=== PATIENT | female | born 1995 | race Caucasian/White ===

== ENCOUNTER 2024-04-08 15:02 | Inpatient (IN) ==
[2024-04-08] MEDS: Lactated Ringers 1000 ml BAG 1,000 ML IV ONE (20:03)
[2024-04-08] MEDS: Lidocaine 2% JELLY 6 ML Topical TOPICAL ONE (20:17)
[2024-04-08 20:20] LABS: ABS Eosinophils 0.1 10^3/uL (0.0-0.5); ABS Lymphocytes 1.7 10^3/uL (1.0-4.8); ABS Monocytes 1.1 10^3/uL (0.0-0.9); ABS Neutrophils 9.4 10^3/uL (1.5-7.6); ABS Nucleated RBC 0.02 10^3/ul; Eosinophil % 0.9 %; Hematocrit 37.5 % (35-45); Hemoglobin 12.8 g/dL (11.5-14.3); Lymphocyte % 13.7 %; Mean Corpuscular Hgb Conc 34.1 g/dL (31-36); Mean Corpuscular Volume 90.7 fL (80-97); Nucleated Red Blood Cells % 0.1 %/100WBC (0.0-0.8); Platelet Count 221 10^3/uL (150-450); Red Blood Count 4.14 10^6/uL (3.63-4.92); Red Cell Distribution Width 12.9 % (12-17); White Blood Count 12.3 10^3/uL (3.8-11.8)
[2024-04-08] MEDS: Nalbuphine 10 MG/ML 1 ML VIAL IV PRN (21:54)
[2024-04-09] MEDS: Lactated Ringers 1000 ml BAG 1,000 ML IV SCH ×2 (07:53→21:37)
[2024-04-09 07:56] LABS: Urine Benzodiazepine Screen None Detected (None Detect); Urine Cannabinoids Screen None Detected (None Detect); Urine Opiates Screen None Detected (None Detect)
[2024-04-09] MEDS: OBEPIDURAL (200 ML) 200 ML EPIDURAL ONE (08:14)
[2024-04-09] MEDS ORDERED: Phenylephrine 40 mcg/mL 10mL (400mcg) SYRINGE IV PUSH PRN ×2 (08:17)
[2024-04-09] MEDS ORDERED: Sodium Citrate/Citric Acid LIQ 15 ML UDC PO PRN (08:17)
[2024-04-09] MEDS: Oxytocin in LR 20,000 MILLI.UNIT/1,000 ML BAG IV SCH ×2 (09:06→21:38)
[2024-04-09 09:33] LABS: Urine Appearance Clear; Urine Bilirubin Negative (Negative); Urine Blood Negative (Negative); Urine Color Colorless; Urine Glucose Negative (Negative); Urine Ketones Negative (Negative); Urine Nitrite Negative (Negative); Urine Protein Negative (Negative); Urine Specific Gravity 1.004 (1.002-1.030); Urine Urobilinogen Negative (Negative)
[2024-04-09] MEDS: Lidocaine 1% VIAL 10 MG/ML 30 ML VIAL INJ PRN (16:20)
[2024-04-09] MEDS: Dibucaine 1% OINT 28.35 GM TUBE ONE (16:23)
[2024-04-09] MEDS: Witch Hazel PAD JAR ONE (16:23)
[2024-04-09] MEDS ORDERED: Witch Hazel PAD JAR TOPICAL PRN (18:25)
[2024-04-09] MEDS ORDERED: Glycerin ADULT 2.4 gm SUPP PR PRN (18:25)
[2024-04-09] MEDS ORDERED: Polyethylene Glycol 3350 17 GM PACKET PO PRN (18:25)
[2024-04-09] MEDS: Buffered Lidocaine 1% SYRIN 1 ml INTRADERM ONE (21:37)
[2024-04-09] MEDS: Lactated Ringers 1000 ml BAG 1,000 ML IV ONE (21:37)
[2024-04-09] MEDS: Lidocaine 1.5% EPI 1:200,000 30 ML SDV ONE (21:37)
[2024-04-09] MEDS: Phenylephrine 40 mcg/mL 10mL (400mcg) SYRINGE ONE (21:37)
[2024-04-09] MEDS: OBEPIDURAL (200 ML) 200 ML EPIDURAL SCH (21:38)
[2024-04-09] MEDS: Methylergonovine 0.2 mg AMPULE 1 ml AMP ONE (21:38)
[2024-04-10 06:53] LABS: ABS Basophils 0.1 10^3/uL (0.0-0.1); ABS Eosinophils 0.1 10^3/uL (0.0-0.5); ABS Lymphocytes 1.1 10^3/uL (1.0-4.8); ABS Monocytes 1.4 10^3/uL (0.0-0.9); ABS Neutrophils 11.8 10^3/uL (1.5-7.6); ABS Nucleated RBC 0.01 10^3/ul; Eosinophil % 0.9 %; Hemoglobin 11.7 g/dL (11.5-14.3); Lymphocyte % 7.6 %; Mean Corpuscular Hemoglobin 31.5 pg (27-33); Mean Corpuscular Hgb Conc 34.3 g/dL (31-36); Mean Corpuscular Volume 91.9 fL (80-97); Mean Platelet Volume 8.8 fL (7.5-11.2); Platelet Count 186 10^3/uL (150-450); Red Blood Count 3.71 10^6/uL (3.63-4.92); Red Cell Distribution Width 12.5 % (12-17); White Blood Count 14.6 10^3/uL (3.8-11.8)
[2024-04-10] MEDS: Dibucaine 1% OINT 28.35 GM TUBE PR PRN (20:26)
[2024-04-11 07:50] VITALS: BP 119/57
[2024-04-11] MEDS: RHO D Immune Globulin (HUMAN) 300 MCG = 1,500 I.U. INJ IM ONE (17:57)
[2024-04-11] MEDS: Measles, Mumps,Rubella VACC 0.5 ML/VIAL SUBCUT ONE (18:02)
== END 2024-04-11 18:30 | disposition home or self-care (01) | DRG 807 ==
LOC: MCHOBOUT 15:02 → MCHOB 04-09 07:13
PROVIDERS: ADMIT Midwife; ATTEND Midwife